=== PATIENT | female | born 1960 | race African-American/Black ===

== ENCOUNTER 2016-09-29 01:23 | Observation (INO) | payer OTHER, MEDICAID ==
[~2016-09-29] VITALS: Ht 172.7 cm; Wt 86.2 kg
[~2016-09-29 01:23] MED LIST: OXCA150T29 PO; QUET25TA PO
[2016-09-29 03:22] LABS: EOSINOPHILS % 0.5 % (0.0-5.0); HEMATOCRIT. 30.6 % (36.0-48.0); HEMOGLOBIN. 9.6 g/dL (12.0-16.0); LYMPHOCYTES % 16.7 % (20.0-50.0); MEAN CORPUSCULAR HEMOGLOBIN 25.6 pg (28.0-32.0); MEAN CORPUSCULAR HGB CONC 31.5 g/dL (31.0-37.0); MEAN CORPUSCULAR VOLUME 81.4 fL (81.0-99.0); MEAN PLATELET VOLUME 7.6 fl (7.4-10.4); MONOCYTES % 7.6 % (2.0-8.0); NEUTROPHILS % 74.2 % (40.0-76.0); PLATELET 262 x1000/uL (130-400); RED BLOOD CELL COUNT 3.76 mill/uL (4.2-5.4); RED CELL DISTRIBUTION WIDTH 20.7 % (11.6-14.6); WHITE BLOOD COUNT 7.4 x1000/uL (4.5-11.0)
[2016-09-29 03:31] LABS: CLARITY URINE CLEAR (CLEAR); COLOR URINE YELLOW (YELLOW); GLUCOSE URINE NEGATIVE (NEGATIVE); KETONES URINE NEGATIVE (NEGATIVE); LEUKOCYTE ESTERASE URINE 2+ (NEGATIVE); NITRITE URINE NEGATIVE (NEGATIVE); OCCULT BLOOD URINE 1+ (NEGATIVE); PROTEIN URINE 2+ (NEGATIVE); SPECIFIC GRAVITY URINE 1.018 (1.005-1.030)
[2016-09-29 03:38] LABS: D-DIMER 5.54 mg/L FEU (<0.50); INR 1.4; PROTHROMBIN TIME 14.6 sec
[2016-09-29 03:44] LABS: ALANINE AMINOTRANSFERASE 113 IU/L (13-61); ALBUMIN 2.8 g/dL (3.4-5.0); ANION GAP 11; CALCIUM 8.1 mg/dL (8.5-10.1); CARBON DIOXIDE 23 mEq/L (21-32); CHLORIDE 105 mEq/L (98-107); INDEX HEMOLYSI 1 (1-3); INDEX ICTERIC 1 (1-4); INDEX LIPEMIC 1 (1-3); NT PRO B-TYPE NATRIURETIC PEP 11541 pg/mL (5-125); UREA NITROGEN BLOOD 28 mg/dL (7-21); eGFR 47 mL/min (>60)
[2016-09-29 03:48] LABS: TROPONIN I 0.71 ng/mL (0.00-0.04)
[2016-09-29 03:57] LABS: BACTERIA URINE 1+; SQUAMOUS EPITHELIAL CELL URINE RARE /lpf (RARE/1+); WBC URINE 25-50 /hpf (0-2)
[2016-09-29] MEDS ORDERED: HEPARIN 25,000 UNITS PREMIX 500 ML IV SCH ×2 (04:45→05:00)
[2016-09-29] MEDS ORDERED: HEPARIN 5000 UNITS/ML VIAL IV NR ×2 (04:45→05:00)
[2016-09-29] MEDS ORDERED: ASPIRIN 325MG TABLET PO NR (04:45)
[2016-09-29] MEDS: CEFTRIAXONE 2 G PREMIX 50 ML IV NR ×2 (05:05→06:17)
[2016-09-29] MEDS ORDERED: CLONIDINE 0.1MG TABLET PO PRN (08:30)
[2016-09-29 09:00] VITALS: BP 179/123
[2016-09-29 12:00] VITALS: BP 137/90
[2016-09-29] MEDS ORDERED: IPRATROPIUM/ALBUTEROL 0.5-3(2.5)MG/3ML NEB INH PRN (12:30)
[2016-09-29] MEDS ORDERED: ACETAMINOPHEN 325MG TABLET PO PRN (12:30)
[2016-09-29] MEDS ORDERED: ONDANSETRON HCL 4MG/2ML VIAL IV PRN (12:30)
[2016-09-29] MEDS ORDERED: CLONIDINE 0.2MG TABLET PO PRN (12:30)
[2016-09-29] MEDS: METHYLPREDNISOLONE SOD SUCC 40 MG/ML VIAL IV SCH ×2 (12:55→20:37)
[2016-09-29] MEDS: FUROSEMIDE 40MG/4ML VIAL IV SCH (12:55)
[2016-09-29] MEDS: AMLODIPINE 5MG TABLET PO SCH ×2 (13:01→20:37)
[2016-09-29] MEDS: CARVEDILOL 3.125 MG TABLET PO SCH ×2 (13:02→20:38)
[2016-09-29] MEDS: HYDROCODONE/ACETAMINOPHEN 5/325MG TABLET PO PRN (13:12)
[2016-09-29] MEDS ORDERED: LEVOFLOXACIN 500MG PREMIX 100 ML IV SCH (15:00)
[2016-09-29 15:37] LABS: *AMPHETAMINES SCREEN URINE NEGATIVE (NEGATIVE); *BARBITURATES SCREEN URINE NEGATIVE (NEGATIVE); *BENZODIAZEPINES SCREEN URINE NEGATIVE (NEGATIVE); *COCAINE SCREEN URINE PRESUMTIVE POSITIVE (NEGATIVE); CANNABINOID URINE SCREEN NEGATIVE (NEGATIVE); ECSTASY MDMA SCREEN URINE NEGATIVE (NEGATIVE); METHADONE URINE SCREEN NEGATIVE (NEGATIVE); OPIATES URINE SCREEN NEGATIVE (NEGATIVE); PHENCYCLIDINE URINE SCREEN NEGATIVE (NEGATIVE)
[2016-09-29 16:00] VITALS: BP 154/108
[2016-09-29 17:03] LABS: CREATINE KINASE 77 IU/L (26-192); INDEX HEMOLYSI 1 (1-3)
[2016-09-29] MEDS: CLONIDINE 0.1MG TABLET PO PRN (17:06)
[2016-09-29] MEDS ORDERED: COR3 PO (19:05)
[2016-09-29] MEDS ORDERED: LOSA50TA20 PO (19:05)
[2016-09-29 20:00] VITALS: BP 159/104
[2016-09-29] MEDS ORDERED: ENOXAPARIN 40MG/0.4ML SYR SUBCUT SCH (20:00)
[2016-09-29] MEDS: QUETIAPINE FUMARATE 25MG TABLET PO SCH (20:37)
[2016-09-30] VITALS: BP 138/90
[2016-09-30 04:00] VITALS: BP 146/91
[2016-09-30 06:37] LABS: HEMOGLOBIN. 9.1 g/dL (12.0-16.0); MEAN CORPUSCULAR HEMOGLOBIN 25.7 pg (28.0-32.0); MEAN CORPUSCULAR HGB CONC 31.5 g/dL (31.0-37.0); MEAN CORPUSCULAR VOLUME 81.3 fL (81.0-99.0); MEAN PLATELET VOLUME 8.1 fl (7.4-10.4); PLATELET 217 x1000/uL (130-400); RED BLOOD CELL COUNT 3.56 mill/uL (4.2-5.4); RED CELL DISTRIBUTION WIDTH 20.8 % (11.6-14.6); WHITE BLOOD COUNT 7.6 x1000/uL (4.5-11.0)
[2016-09-30 07:22] LABS: ALANINE AMINOTRANSFERASE 92 IU/L (13-61); ALBUMIN 2.6 g/dL (3.4-5.0); ANION GAP 16; CALCIUM 7.9 mg/dL (8.5-10.1); CARBON DIOXIDE 21 mEq/L (21-32); CHLORIDE 101 mEq/L (98-107); CREATINE KINASE 58 IU/L (26-192); HDL CHOLESTEROL 55 mg/dL (40-59); INDEX HEMOLYSI 1 (1-3); INDEX ICTERIC 1 (1-4); INDEX LIPEMIC 1 (1-3); LDL CHOLESTEROL 56 mg/dL (5-100); MAGNESIUM 1.7 mg/dL (1.8-2.4); T4 FREE 1.02 ng/dL (0.76-1.46); TRIGLYCERIDE 30 mg/dL (0-150); UREA NITROGEN BLOOD 33 mg/dL (7-21); eGFR 40 mL/min (>60)
[2016-09-30 07:24] LABS: DIFFERENTIAL COMMENT 1
[2016-09-30 07:35] LABS: THYROID STIMULATING HORMONE 0.43 uIU/mL (0.36-3.74)
[2016-09-30 07:49] LABS: TROPONIN I 0.63 ng/mL (0.00-0.04)
[2016-09-30 08:00] VITALS: BP 163/116
[2016-09-30] MEDS ORDERED: ASPIRIN 81MG EC TABLET PO SCH (09:00)
[2016-09-30] MEDS: AMLODIPINE 5MG TABLET PO SCH (09:09)
[2016-09-30] MEDS: CARVEDILOL 3.125 MG TABLET PO SCH (09:09)
[2016-09-30] MEDS: HYDROCODONE/ACETAMINOPHEN 5/325MG TABLET PO PRN ×2 (09:10→13:37)
[2016-09-30] MEDS: QUETIAPINE FUMARATE 25MG TABLET PO SCH (09:11)
[2016-09-30] MEDS: FUROSEMIDE 40MG/4ML VIAL IV SCH (09:11)
[2016-09-30] MEDS: METHYLPREDNISOLONE SOD SUCC 40 MG/ML VIAL IV SCH (09:11)
[2016-09-30 10:21] LABS: ANISOCYTOSIS 1+; PLATELET ESTIMATE NORMAL
[2016-09-30] MEDS ORDERED: MAGNESIUM 2 G PREMIX 50 ML IV SCH (11:00)
[2016-09-30 12:00] VITALS: BP 170/111
[2016-09-30] MEDS: CLONIDINE 0.1MG TABLET PO PRN (13:36)
[2016-09-30] MEDS ORDERED: HYDRALAZINE HCL 50MG TABLET PO SCH (14:00)
[2016-09-30 16:00] VITALS: BP 134/86
[2016-09-30] MEDS ORDERED: LEVOFLOXACIN 250MG PREMIX 50 ML IV SCH (16:00)
[2016-09-30 17:59] VITALS: BP 134/86
== END 2016-09-30 18:45 | disposition home or self-care (01) ==
LOC: ER 01:23 → INTOOBSV 05:03 → 7WST 05:03
PROVIDERS: ADMIT Internal Medicine; ATTEND Internal Medicine
DX: I50.9 Heart failure, unspecified (principal); I11.0 Hypertensive heart disease with heart failure; I16.0 Hypertensive urgency; D63.8 Anemia in other chronic diseases classified elsewhere; I27.2 Other secondary pulmonary hypertension; J44.1 Chronic obstructive pulmonary disease with (acute) exacerbation; I42.0 Dilated cardiomyopathy; I08.1 Rheumatic disorders of both mitral and tricuspid valves; E46 Unspecified protein-calorie malnutrition; F20.9 Schizophrenia, unspecified; F14.10 Cocaine abuse, uncomplicated; F17.210 Nicotine dependence, cigarettes, uncomplicated; N28.9 Disorder of kidney and ureter, unspecified; N39.0 Urinary tract infection, site not specified; Z87.01 Personal history of pneumonia (recurrent)
CPT/HCPCS: 36415; 71010; 78582; 80053; 80061; 80305; 81001; 82550; 82553; 83735; 83880; 84439; 84443; 84484; 85025; 85379; 85610; 85730; 87040; 93005; 93306; 93970; 96365; 96366; 96367; 96372; 96375; 96376; 99285; A9540; A9558; G0378; J0696; J1644; J1650; J1940; J1956; J2920; J3475; J7050